=== PATIENT | female | born 1980 ===

== ENCOUNTER 2018-12-09 10:40 | Outpatient (CLI) | payer SELFPAY | END 2018-12-09 10:41 | disposition home or self-care (01) | LOC: C.MAMMO 10:41 ==

== ENCOUNTER 2018-12-30 11:18 | Outpatient (CLI) | payer SELFPAY | END 2018-12-30 11:19 | disposition home or self-care (01) | LOC: C.USIC 11:18 | DX: E04.1 Nontoxic single thyroid nodule (principal) ==

== ENCOUNTER 2019-02-02 09:08 | Outpatient (CLI) | payer SELFPAY | END 2019-02-02 09:09 | disposition home or self-care (01) | LOC: C.LAB 09:08 | DX: E23.6 Other disorders of pituitary gland (principal) ==